=== PATIENT | male | born 1950 | race Caucasian/White ===

== ENCOUNTER 2020-06-11 00:32 | Emergency (ER) | payer MEDICARE, MEDICAID ==
[~2020-06-11] VITALS: Ht 170.2 cm; Wt 81.7 kg
--- NOTE | ~2020-06-11 | EMS ---
[address] [address] EMS Patient Care Report Name: LLOYD WILSON [id number] Admission: 06/11/20 Attend Phys: Discharge: 06/11/20 Date of : 50 Report #: [id number] THIS REPORT FOR: //name// Report Transmitted: 06/12/2020 07:49 EMS Care Summary [place] Incident [id number] @ 06/11/2020 00:00 Incident Location [id number] [place] [address] Patient lloyd wilson Male, 69 Years 1950 Patient Address [id number] [place], [place] [id number] Patient History Alcohol dependence, uncomplicated,Alcohol related disorders, Patient Allergies No known allergies, Chief Complaint Alcohol related symptoms Disposition Transported No Lights/[place] Dispatch Reason Sick Person Transported To [facility] Narrative [facility] DISPATCHED TO A PT WHO DRANK ETOH ON ARRIVAL PT WAS FOUND WALKING TOWARDS AMBULANCE. PT DID NOT HAVE ANY ISSUES WITH GAIT. PT YELLED AT CREW THAT HE WANTED TO BE SEEN FOR ETOH ABUSE. PT WALKED TO BACK OF ambulance WITH OUT ASSISTANCE MADE HIS WAY TO HE COT WHERE HE SAT DOWN. PT WAS SECURED WITH SEAT BELTS. PT VITALS WHERE OBTAINED. THROUGH OUT TRANSPORT PT WAS LOAD AND RUDE. PT VITALS WHERE MONITORED. AT DESTINATION A FULL REPORT WAS GIVEN TO STAFF ONCE [address] [place] [address] EMS Patient Care Report Name: LLOYD WILSON Room: [facility]#: [id number] Admission: 06/11/20 Attend Phys: Discharge: 06/11/20 Date of : 50 Report #: [id number] ALL QUESTIONS WHERE ANSWERED PT WAS unsecured FROM COT AND WALKED TO BED. [facility] CLEAR. Initial Vitals @00:16SpO2: 94, @00:27SpO2: 95, @00:16P: 88,R: 18,BP: 153/90, @00:27P: 86,R: 18,BP: 131/77, @00:16GCS: 15, @00:27GCS: 15, Assessments @00:14MENTAL:SKIN:HEENT:LUNG SOUNDS:ABDOMEN:PELVIS//GI:EXTREMITIES:PULSE:NEURO: Impression Alcohol use Timeline 00:00,Call Received 00:00,Dispatch Notified 00:00,Psap Call 00:00,Dispatched 00:01,En Route 00:12,On Scene 00:14,At Patient 00:16,BP: / M,PULSE: ,RR: R,SPO2: 94 Ox,ETCO2: ,BG: ,PAIN: ,GCS: , 00:16,BP: 153/90 M,PULSE: 88,RR: 18 R,SPO2: Ox,ETCO2: ,BG: ,PAIN: ,GCS: , 00:16,BP: / M,PULSE: ,RR: R,SPO2: Ox,ETCO2: ,BG: ,PAIN: ,GCS: 15, 00:16,Depart Scene 00:27,BP: / M,PULSE: ,RR: R,SPO2: 95 Ox,ETCO2: ,BG: ,PAIN: ,GCS: , 00:27,BP: 131/77 M,PULSE: 86,RR: 18 R,SPO2: Ox,ETCO2: ,BG: ,PAIN: ,GCS: , 00:27,BP: / M,PULSE: ,RR: R,SPO2: Ox,ETCO2: ,BG: ,PAIN: ,GCS: 15, 00:29,At Destination 00:35,Call Closed Disclaimer v1.1 Copyright 2020 [employer] This EMS Care Summary contains data elements from the applicable legal record (which may be displayed differently). It is designed to provide pertinent information for the following purposes: continuity of care, clinical quality, and state data reporting. The complete legal record is available to ED staff and administrators of the receiving hospital in [employer] Patient Tracker. All data is provided "as is."
[~2020-06-11 00:32] MED LIST: ATIVAN1 MG PO; NEURONTIN 300M300 M2 PO; SEROQUEL 50 MG50 MG PO
[2020-06-11 01:11] LABS: HEMATOCRIT 42.8 % (42.0-52.0); HEMOGLOBIN 14.2 gm/dL (14.0-18.0); MCH 30.3 pg (26.0-34.0); MCHC 33.2 g/dL (28.0-37.0); MCV 91.2 fL (80.0-100.0); MPV 7.4 fl. (7.2-11.1); RBC 4.69 mil/uL (4.50-6.00); WBC 6.1 thou/uL (4.0-11.0)
[2020-06-11 01:18] LABS: CALCIUM 8.5 mg/dL (8.5-10.1); CREATININE 0.9 mg/dL (0.6-1.3); POTASSIUM 3.3 mmol/L (3.5-5.1)
[2020-06-11 01:23] LABS: ALBUMIN 3.3 g/dL (3.4-5.0); TOTAL BILIRUBIN 0.3 mg/dL (<0.1-1.0); TOTAL PROTEIN 7.1 g/dL (6.4-8.2)
[2020-06-11 01:37] LABS: ALCOHOL 218 mg/dL (<10); SALICYLATE < 2.8 mg/dL (2.8-20.0)
[2020-06-11 01:43] LABS: ACETAMINOPHEN < 2 ug/mL (10-30)
[2020-06-11 05:32] LABS: URINE BILIRUBIN NEGATIVE (Negative); URINE BLOOD NEGATIVE (Negative); URINE CLARITY CLEAR; URINE COLOR YELLOW; URINE GLUCOSE-RANDOM NEGATIVE (Negative); URINE KETONES NEGATIVE (Negative); URINE LEUKOCYTES NEGATIVE (Negative); URINE NITRITE NEGATIVE (Negative); URINE PROTEIN NEGATIVE (Negative); URINE UROBILINOGEN 0.2 E.U./dl (0.2-1.0)
[2020-06-11 05:40] LABS: AMP/METHAMP Negative (Negative); BARBITURATES Negative (Negative); BENZODIAZEPINES POSITIVE (Negative); COCAINE Negative (Negative); METHADONE Negative (Negative); OPIATES Negative (Negative); PCP Negative (Negative); THC Negative (Negative)
[2020-06-11 08:10] VITALS: BP 135/72
== END 2020-06-11 08:15 | disposition home or self-care (01) ==
LOC: M.ERS 00:32
PROVIDERS: Personal Emergency Response Attendant
DX: F10.129 Alcohol abuse with intoxication, unspecified (principal); Y90.7 Blood alcohol level of 200-239 mg/100 ml; Z20.822 Contact with and (suspected) exposure to COVID-19; J44.9 Chronic obstructive pulmonary disease, unspecified

== ENCOUNTER 2020-10-18 15:02 | Inpatient (IN) | payer OTHER, MEDICAID ==
[~2020-10-18] VITALS: Ht 172.7 cm; Wt 86.0 kg
[2020-10-18 15:06] VITALS: BP 140/79
[2020-10-18] MEDS ORDERED: DEPAKOTE ER500 M1 PO (15:33)
[2020-10-18] MEDS ORDERED: DESYREL150 MG PO (15:33)
[2020-10-18] MEDS ORDERED: PREGABALIN50 MG PO (15:33)
[2020-10-18] MEDS ORDERED: REMERON15 M2 PO (15:34)
[2020-10-18] MEDS ORDERED: SINGULAIR 10 MG10 MG PO (15:34)
[2020-10-18] MEDS ORDERED: PROTONIX40 M2 PO (15:34)
[2020-10-18] MEDS ORDERED: SERTRALINE HCL100 MG PO (15:35)
[2020-10-18] MEDS ORDERED: FOLIC ACID1 MG PO (15:35)
[2020-10-18] MEDS ORDERED: OLANZAPINE ODT5 MG PO (15:35)
[2020-10-18] MEDS ORDERED: BACLOFEN 10MG T10 MG PO (15:35)
[2020-10-18] MEDS ORDERED: MINIPRESS2 MG PO (15:36)
[2020-10-18] MEDS ORDERED: ATORVASTATIN CA80 MG PO (15:36)
[2020-10-18 15:52] LABS: HEMATOCRIT 41.6 % (42.0-52.0); HEMOGLOBIN 14.2 gm/dL (14.0-18.0); MCH 31.3 pg (26.0-34.0); MCHC 34.1 g/dL (28.0-37.0); MCV 91.7 fL (80.0-100.0); MPV 6.9 fl. (7.2-11.1); RBC 4.53 mil/uL (4.50-6.00); RDW-CV 14.5 % (10.5-14.5); WBC 10.2 thou/uL (4.0-11.0)
[2020-10-18 16:01] LABS: POTASSIUM 2.9 mmol/L (3.5-5.1)
[2020-10-18 16:13] LABS: ACETAMINOPHEN < 2 ug/mL (10-30); SALICYLATE < 2.8 mg/dL (2.8-20.0)
[2020-10-18 17:18] LABS: URINE BILIRUBIN NEGATIVE (Negative); URINE BLOOD TRACE (Negative); URINE CLARITY CLEAR; URINE COLOR YELLOW; URINE GLUCOSE-RANDOM NEGATIVE (Negative); URINE KETONES NEGATIVE (Negative); URINE LEUKOCYTES NEGATIVE (Negative); URINE NITRITE NEGATIVE (Negative); URINE PROTEIN NEGATIVE (Negative); URINE SPECIFIC GRAVITY <= 1.005 (1.005-1.030); URINE UROBILINOGEN 0.2 E.U./dl (0.2-1.0)
[2020-10-18 17:26] LABS: AMP/METHAMP Negative (Negative); BARBITURATES Negative (Negative); BENZODIAZEPINES POSITIVE (Negative); COCAINE Negative (Negative); METHADONE Negative (Negative); OPIATES Negative (Negative); PCP Negative (Negative); THC Negative (Negative)
[2020-10-19] VITALS (12 sets, daily range): BP systolic 128–153; BP diastolic 44–81
[2020-10-19 06:16] LABS: INR 1.1; PROTIME 11.4 Seconds (9.20-11.50)
[2020-10-19 06:17] LABS: MAGNESIUM 1.9 mg/dL (1.8-2.4); PHOSPHORUS* 2.8 mg/dL (2.5-4.9)
--- NOTE | 2020-10-19 08:00 | NUR ---
ADMITTED FROM ER. STATES HIS FRIEND FRANKIE COLLADO IS THE PERSON TO CONTACT. SHE MET HIM IN THE LAST MONTH DURING THEIR STAY AT [facility]. SHE IS HIS TRANSPORTATION, SUPPORT AND HE SOMETIMES CALLS HER HIS "" SHE CLEARLY STATES PATIENT HAS A CHANDRAKANT AT HOME. WE DON'T HAVE HER #, HE DOESN'T KNOW IT, AND FRANKIE DOESN'T EITHER. CHANDRAKANT ALSO ALCOHOLIC. PATIENT HAS A PLAN TO GO TO RESIDENTIAL TREATMENT ON THURSDAY. PATIENT INITIALLY STATES HE WANTS TO SLIT HIS WRISTS TO KILL HIMSELF, BUT THEN STATES HE HAS A REASON TO LIVE AND DOESN'T PLAN TO KILL HIMSELF.
[2020-10-19] MEDS ORDERED: PROAIR HFA8.5 GM INH (08:08)
[2020-10-19] MEDS ORDERED: ALBUTEROL (08:09)
[2020-10-19] MEDS ORDERED: DEPAKOTE 250MG250 M1 PO (11:39)
--- NOTE | 2020-10-19 13:39 | NUR ---
armando spk w/ pt who inidicated he lives at home with his in an apt, but pt couldnt recall his number. pt has a walker. pt had inpatient pysch hx at [facility]. pt wanted to rtrn to inpt psych as he has stated he has ruminating negative, self harming thoughts. pt stated he stop taking his bi-polar medication "about 5 days ago" bc he wanted to drink. pt drink of choice is whiskey shots. non-compliance with meds and drinkig enhancing SI. the POC is for a pysch eval.
--- NOTE | 2020-10-19 15:17 | EKG ---
[place] [address] ELECTROCARDIOGRAM REPORT Name: JUAN PABLO GRIFFINLORENZO Chuckie Room: [address] ADM IN M.R.#: [id number] Admission: 10/19/20 Attend Phys: Jagjit Kyle, Discharge: Date of : 50 Date of Service: 10/19/20 0704 Report #: [id number] THIS REPORT FOR: //name// [facility] ED Test Date: 2020-10-19 Test Time: 07:04:13 Pat Name: NITISH GRIFFIN Department: Room: [facility] Gender: M Clinical Outcomes Manager: DION : 1950 Requested By: Lela Barney Order Number: [id number] MD: Harjit Quintero Measurements Intervals [place] Rate: 74 P: 72 GA: 154 QRS: -42 QRSD: 128 T: 29 QT: 425 QTc: 472 Interpretive Statements Sinus rhythm RBBB and LAFB Compared to ECG 12/29/2016 13:09:45 Left anterior fascicular block persists Right bundle-branch block now present Electronically Signed On 10-19-2020 15:17:05 CDT by Harjit Quintero [email or web address] <ELECTRONICALLY SIGNED> By: Harjit Quintero MD, [facility] 10/19/20 1517 0704 Harjit Quintero MD, [facility] /EPI
--- NOTE | 2020-10-19 18:09 | NUR ---
UPDATED JULIANE RN ON PATIENT TRANSPORTED TO TELE VIA WHEELCHAIR. TELEPSYCH dr to CALL DR. AHN. DR AHN PAGED TO ASK ABOUT ORDERS BASED ON RECOMMENDATIONS
[2020-10-20] VITALS (7 sets, daily range): BP systolic 104–157; BP diastolic 40–89
[2020-10-20 09:43] LABS: CALCIUM 7.3 mg/dL (8.5-10.1); CREATININE 1.2 mg/dL (0.6-1.3); POTASSIUM 3.5 mmol/L (3.5-5.1)
--- NOTE | 2020-10-20 20:13 | NUR ---
Pt remained A&Ox3 for entire shift. Pt pleasant with staff, vital signs stable. Pt is impulsive and will climb out of bed to go to the bathroom. Fall precautions in place. Seizure precautions in place. Pt's friend at bedside for most of the day. When asked about rehab, pt states, "hell yeah I am going to rehab!" Regular CIWA assessments completed, hourly rounding completed.
--- NOTE | 2020-10-21 04:43 | NUR ---
ASSUMED PT CARE AT APPROX 1930. PT IS AWAKE, ORIENTED TO SELF AND PLACE, PT IS IMPULSIVE AND IRRITABLE AT TIMES. ALCOHOL WITHDRAWAL ASSESSMENT CHARTED, ATIVAN GIVEN PER MAY. PT IS TRACING SR/ST WITH BBB ON THE HUMIDIFIER OPERATOR. PT IS CLOSELY MONITORED. HIGH FALL PRECAUTIONS AND SEIZURE PRECAUTIONS IN PLACE. CALL LIGHT WITHIN REACH.
[2020-10-21 07:57] LABS: CALCIUM 7.5 mg/dL (8.5-10.1); CREATININE 0.9 mg/dL (0.6-1.3); MAGNESIUM 1.8 mg/dL (1.8-2.4); PHOSPHORUS* 3.4 mg/dL (2.5-4.9); POTASSIUM 3.7 mmol/L (3.5-5.1)
[2020-10-21 09:05] VITALS: BP 155/85
[2020-10-21 12:18] VITALS: BP 149/54
[2020-10-21 16:00] VITALS: BP 166/94
[2020-10-21 20:00] VITALS: BP 167/70
[2020-10-21 23:16] VITALS: BP 148/66
[2020-10-21 23:30] VITALS: BP 144/77
[2020-10-22] VITALS (24 sets, daily range): BP systolic 108–176; BP diastolic 63–88
--- NOTE | 2020-10-22 00:46 | NUR ---
CIWA SCORES HAVE BEEN MORE THAN 20 MULTIPLE TIMES THIS SHIFT, PT IS TRANSFERED TO ICU FOR CLOSE MONITORING AT APPROX 2310 AFTER REPORT GIVEN TO KATIE DEY.
--- NOTE | 2020-10-22 04:25 | NUR ---
RECIEVED PT FROM TELE WITH CIWA OF 23 AND TRYING TO GET OUT OF THE BED, ATIVAN GIVEN REORIENT PT. PRECEDEX STARTED AND PT WAS ASLEEP AND NO EPISODE OF AGITATION. NO DISTRESS AND NO SIEZURE NOTED. CONTINUE MONITORING AND TOWARDS GOALS.
--- NOTE | 2020-10-22 06:38 | NUR ---
PT WOKE UP. HE WAS ANXIOUS AND HAD SOA. PRECEDEX INCREASED AND BREATHING TX GIVEN.
[2020-10-22 10:30] LABS: ABSOLUTE BASOPHILS 0.1 thou/uL (0.0-0.2); ABSOLUTE EOSINOPHILS 0.4 thou/uL (0.0-0.7); ABSOLUTE LYMPHOCYTES 1.3 thou/uL (0.8-5.3); ABSOLUTE MONOCYTES 0.5 thou/uL (0.0-1.2); ABSOLUTE NEUTROPHILS 4.4 thou/uL (1.6-8.1); BASOPHILS 1.2 %; EOSINOPHILS 6.3 %; HEMATOCRIT 39.9 % (42.0-52.0); HEMOGLOBIN 13.6 gm/dL (14.0-18.0); LYMPHOCYTES 19.3 %; MCH 31.3 pg (26.0-34.0); MCHC 34.1 g/dL (28.0-37.0); MCV 91.6 fL (80.0-100.0); MPV 7.4 fl. (7.2-11.1); NUCLEATED RBCS 0 /100WBC; PLATELET COUNT* 154 thou/uL (150-400); POLYS 66.2 %; RBC 4.35 mil/uL (4.50-6.00); RDW-CV 15.2 % (10.5-14.5); WBC 6.6 thou/uL (4.0-11.0)
[2020-10-22 10:42] LABS: ALBUMIN 2.9 g/dL (3.4-5.0); CALCIUM 7.9 mg/dL (8.5-10.1); CREATININE 0.9 mg/dL (0.6-1.3); POTASSIUM 3.5 mmol/L (3.5-5.1); TOTAL BILIRUBIN 0.5 mg/dL (<0.1-1.0); TOTAL PROTEIN 6.7 g/dL (6.4-8.2)
--- NOTE | 2020-10-22 15:03 | NUR ---
barriers to dc: CIWA greater than 20. precedex gtt. the plan will be for pt to d/c [facility] when medically stable.
[2020-10-23] VITALS (10 sets, daily range): BP systolic 122–156; BP diastolic 60–129
[2020-10-23 03:22] LABS: HEMATOCRIT 36.7 % (42.0-52.0); HEMOGLOBIN 12.5 gm/dL (14.0-18.0); MCH 31.2 pg (26.0-34.0); MCHC 33.9 g/dL (28.0-37.0); MPV 7.6 fl. (7.2-11.1); RBC 3.99 mil/uL (4.50-6.00); RDW-CV 15.1 % (10.5-14.5); WBC 5.9 thou/uL (4.0-11.0)
[2020-10-23 03:39] LABS: ALBUMIN 2.5 g/dL (3.4-5.0); CALCIUM 7.8 mg/dL (8.5-10.1); CREATININE 0.9 mg/dL (0.6-1.3); MAGNESIUM 1.7 mg/dL (1.8-2.4); POTASSIUM 3.1 mmol/L (3.5-5.1); TOTAL BILIRUBIN 0.6 mg/dL (<0.1-1.0); TOTAL PROTEIN 5.9 g/dL (6.4-8.2)
--- NOTE | 2020-10-23 04:06 | NUR ---
ASSUMED CARE AT 1900H, ON RA AND TOLERATED. ON PRECEDEX DRIP AND STOP AT 2030H DUE TO BRADYCARDIA. PT WAS ORIENTED AND CIWA 0F 5. NO FEVER BUT STILL WITH WHEEZES. PT ATE WELL HIS SNACK BOX. PT ASKED IF HE CAN GO HOME TODAY. CONTINUE MONITORING AND TOWARDS AND GOALS.
--- NOTE | 2020-10-23 15:11 | NUR ---
per dr mccord's progress note, inpt pysch tx not needed at this. etoh tx recommended; however, pt indicated he wants to d/c from [facility] to home and he will work with his case management assistant at [facility] to get residential tx re-arranged. pt nor his , errol ([phone]) no the name of the residential tx facility, or the name of his cm. pt indicated his friend, elizabeth can provide transportation to home at d/c.
--- NOTE | 2020-10-23 18:31 | NUR ---
PT IS BEING TRANSFERED TO ROOM 201 ALL BELONGINGS PACKED AND SENT WITH PT VIA WHEELCHAIR BY NURSING STAFF
[2020-10-24 00:29] VITALS: BP 147/78
[2020-10-24 04:51] LABS: HEMATOCRIT 34.8 % (42.0-52.0); HEMOGLOBIN 11.8 gm/dL (14.0-18.0); MCH 31.2 pg (26.0-34.0); MCV 91.7 fL (80.0-100.0); MPV 7.8 fl. (7.2-11.1); RBC 3.8 mil/uL (4.50-6.00); RDW-CV 15.8 % (10.5-14.5); WBC 5.1 thou/uL (4.0-11.0)
[2020-10-24 05:11] LABS: ALBUMIN 2.7 g/dL (3.4-5.0); CALCIUM 8.3 mg/dL (8.5-10.1); CREATININE 1.1 mg/dL (0.6-1.3); MAGNESIUM 1.8 mg/dL (1.8-2.4); POTASSIUM 4.2 mmol/L (3.5-5.1); TOTAL BILIRUBIN 0.4 mg/dL (<0.1-1.0); TOTAL PROTEIN 6.4 g/dL (6.4-8.2)
[2020-10-24 05:51] VITALS: BP 142/82
[2020-10-24 12:18] VITALS: BP 165/88
--- NOTE | 2020-10-24 13:44 | NUR ---
Anticipate dc in a few days. Therapies to eval. CIWAs going up.
[2020-10-24 16:35] VITALS: BP 173/90
[2020-10-24 18:58] VITALS: BP 141/74
--- NOTE | 2020-10-24 19:24 | NUR ---
PT RESTLESS, CONFUSED, ORIENTED TO SELF ONLY. PT DENIES HAVING C/O PAIN UPON ASSESMENT. HE HAS MADE SEVERAL ATTEMPTS TO CLIMB OUT OF BED BECAUSE HE SAYS HE HAS TO GOT TO THE BANK BUT HAS BEEN EASILY REDIRECTED.
[2020-10-24 19:30] VITALS: BP 137/75
[2020-10-25 00:20] VITALS: BP 131/78
[2020-10-25 04:03] VITALS: BP 140/62
--- NOTE | 2020-10-25 05:20 | NUR ---
ASSUMED PATIENT CARE AT 1900. ASSESSMENT COMPLETED CHARTED. CARDIAC MONITORING IN PLACE. HOURLY ROUNDING IN PLACE FOR PATIENT SAFETY. FALL PRECAUTIONS IN PLACE FOR PATIENT SAFETY. BED LOCKED AND IN LOWEST POSITION. CLWR.
[2020-10-25 08:25] VITALS: BP 146/79
[2020-10-25 12:00] VITALS: BP 155/79
[2020-10-25] MEDS ORDERED: PREDNISONE 10 M10 MG PO (13:38)
[2020-10-25 16:00] VITALS: BP 152/78
[2020-10-25 20:00] VITALS: BP 141/84
[2020-10-26] VITALS: BP 150/70
[2020-10-26 04:00] VITALS: BP 117/58
[2020-10-26 08:00] VITALS: BP 143/69
[2020-10-26 11:44] VITALS: BP 141/62
--- NOTE | 2020-10-26 13:56 | NUR ---
No weekend dc planned. Pt had sitter over night. Ciwa is 16, continues to withdraw
[2020-10-26 16:00] VITALS: BP 146/80
--- NOTE | 2020-10-26 17:00 | NUR ---
TOOK OVER PT CARE FROM TIBURCIO WOOD AT APPROX 1500, PT AOX4, NO C/O PAIN, IV MEDS FINISHING UP AND DR PEACOCK NOTIFIED THAT PT IS READY FOR DC, DC ORDERS RECEIVED. IV AND GRADING MACHINE FEEDER REMOVED. PT DC'D BY WC W/ NURSING STAFF AND ALL PAPERWORK AND PERSONAL BELONGINGS TO SON'S VEHICLE AT APPROX 1705
[2020-10-26 20:00] VITALS: BP 142/72
[2020-10-27 00:13] VITALS: BP 140/79
[2020-10-27 03:57] VITALS: BP 137/82
[2020-10-27 05:20] LABS: HEMATOCRIT 40.8 % (42.0-52.0); HEMOGLOBIN 13.3 gm/dL (14.0-18.0); MCH 30.4 pg (26.0-34.0); MCHC 32.5 g/dL (28.0-37.0); MCV 93.4 fL (80.0-100.0); MPV 8.4 fl. (7.2-11.1); RBC 4.37 mil/uL (4.50-6.00); RDW-CV 15.8 % (10.5-14.5); WBC 7.3 thou/uL (4.0-11.0)
[2020-10-27 05:42] LABS: CALCIUM 8.3 mg/dL (8.5-10.1); CREATININE 0.9 mg/dL (0.6-1.3); POTASSIUM 4.2 mmol/L (3.5-5.1)
[2020-10-27 12:00] VITALS: BP 142/59
[2020-10-27 16:00] VITALS: BP 129/66
[2020-10-27 20:00] VITALS: BP 119/57
[2020-10-28 00:35] VITALS: BP 168/77
[2020-10-28 05:28] LABS: HEMATOCRIT 41.2 % (42.0-52.0); HEMOGLOBIN 13.9 gm/dL (14.0-18.0); MCH 31.2 pg (26.0-34.0); MCHC 33.8 g/dL (28.0-37.0); MCV 92.3 fL (80.0-100.0); MPV 8.4 fl. (7.2-11.1); NUCLEATED RBCS 0 /100WBC; PLATELET COUNT* 187 thou/uL (150-400); RBC 4.46 mil/uL (4.50-6.00); RDW-CV 15.6 % (10.5-14.5); WBC 8.6 thou/uL (4.0-11.0)
[2020-10-28 05:36] LABS: CALCIUM 8.5 mg/dL (8.5-10.1); TOTAL BILIRUBIN 0.5 mg/dL (<0.1-1.0); TOTAL PROTEIN 6.8 g/dL (6.4-8.2)
[2020-10-28 08:02] LABS: ABSOLUTE LYMPHOCYTES 0.3 thou/uL (0.8-5.3); ABSOLUTE MONOCYTES 0.3 thou/uL (0.0-1.2); ANISOCYTOSIS 1+; PLATELET ESTIMATE ADEQUATE; POIKILOCYTOSIS 1+
[2020-10-28 08:50] VITALS: BP 116/65
[2020-10-28 12:00] VITALS: BP 116/57
[2020-10-28 16:00] VITALS: BP 147/90
[2020-10-28 20:00] VITALS: BP 128/69
--- NOTE | 2020-10-28 20:00 | NUR ---
RECEIVED REPORT AND ASSUMED CARE OF PT, ASSESSMENT COMPLETED. PT VERY CONFUSED AND IMPULSIVE. ATTEMPTING MULTIPLE TIMES TO GET OUT OF BED TO GO HOME. ASSISTED TO BSC FOR LG BM. IV ATIVAN GIVEN. TELEMETRY ON SHOWING SR. WILL CONT TO MONITOR AND ASSIST NEEDED.
[2020-10-29] VITALS (7 sets, daily range): BP systolic 104–134; BP diastolic 53–78
--- NOTE | 2020-10-29 06:47 | NUR ---
AWAKE ALL NIGHT AND RESTLESS. CONSTANTLY WANTING TO GO HOME, ATTEMPTED TO REORIENTATE. TOOK MEDS IN APPLESAUCE WITH NECTAR THICK LIQ, NO COUGHING OR CHOKING. SEIZURE PRECAUTIONS IN PLACE AND SIDE RAILS PADDED. IV RESTARTED WITH DIFFICULTY INTO LT HAND. TELEMETRY CONT TO SHOW SR. NO CHANGES IN ASSESSMENT. HS GOAL OF SAFETY ACHIEVED. HOURLY ROUNDING OBSERVED.
--- NOTE | 2020-10-29 12:34 | NUR ---
ASSUMED CARE OF PT AT 0730. PT A&0X4, FORGETFUL AND CONFUSED AT TIMES, SLURRED SPEECH NOTED AT TIMES WELL. SEIZURE PRECAUTIONS IN PLACE. TRACING SR ON THE HEALTH CARE ADMINISTRATOR. ON RA SAT MID 90'S. DENIES ANY PAIN OR SHORTNESS OF BREATH. PT INCONT OF BOWEL AND BLADDER. CIWA CHARTED.-16-18, PT AGITATED, CONFUSED, IMPULSIVE AND TREMORS NOTED. PRN ATIVAN GIVEN PER EMAR. FAMILY FRIEND REMAINS AT BEDSIDE AT THIS TIME. PT UP WITH 2 ASSIST-WEAKNESS NOTED. PT ASKING FOR TOBACCO CHEW- DR PEACOCK NOTIFIED AND ORDERS RECEIVED FOR NICOTINE PATCH-REFER TO EMAR. AM ASSESSMENT CHARTED. MEDICATIONS PER MAY. PT REPOSITIONS SELF. HOURLY ROUNDING OBSERVED. BED IN LOW POSITION. BED ALARM IN PLACE. FALL PRECAUTIONS IN PLACE. CALL LIGHT WITHIN REACH. WILL CONTINUE PLAN OF CARE.
--- NOTE | 2020-10-29 15:01 | NUR ---
Pt continues to withdraw, ciwa ranging from 12-18. ?placement at dc vs home with friend. Per , does not want Pt to return home. Pt will need to be more clear prior to dc, Pt would need to be able to agree to placement/sign himself into a facility. CM to discuss dc with Pt's friend. Following.
--- NOTE | 2020-10-29 20:00 | NUR ---
RECEIVED REPORT AND ASSUMED CARE OF PT, ASSESSMENT COMPLETED. PT CALMER THIS EVENING AND MORE COOPERATIVE. PT NAUSEATED WITH EMESIS, STATES HE FEELS BETTER AFTER THROWING UP. TELEMETRY ON SHOWING SR WITH BBB. WILL CONT TO MONITOR AND ASSIST NEEDED.
[2020-10-30 04:07] VITALS: BP 131/71
--- NOTE | 2020-10-30 06:45 | NUR ---
SLEPT WELL TONIGHT. ASSISTED TO BSC X1, UNSTEADY BUT DID WELL. TOLERATED PO MEDS IN APPLESAUCE AND NECTAR THICK LIQUIDS. NO CHANGE IN ASSESSMENT. HS GOALS OF REST AND SAFETY ACHIEVED.
[2020-10-30 07:45] VITALS: BP 119/57
[2020-10-30 12:00] VITALS: BP 133/66
--- NOTE | 2020-10-30 12:58 | NUR ---
Pt continues to withdraw, ciwa around 18. CM left VM for , await call back.
[2020-10-30 16:00] VITALS: BP 145/75
--- NOTE | 2020-10-30 18:04 | NUR ---
NO ACUTE CHANGES THROUGHOUT SHIFT. PT IMPULSIVE, CONFUSED, REQUESTING CHEW AND LIQUOR. CIWA CHARTED. PRN PO ATIVAN GIVEN PER EMAR. PT FRIEND, FRANKIE, HERE THROUGHOUT SHIFT. PT , VANESSA-CALLED MULTIPLE TIMES THROUGHOUT SHIFT-UPDATED ON CURRENT PLAN OF CARE EACH TIME. PT DENIES ANY PAIN OR SHORTNESS OF BREATH. TRACING SR ON THE ASSISTANT DIRECTOR OF FINANCIAL AID. INCONT OF BLADDER THROUGHOUT SHIFT. AM ASSESSMENT CHARTED. MEDS PER MAR. CALL LIGHT WITHIN REACH. FALL PRECAUTIONS IN PLACE. BED ALARM IN PLACE. WILL CONTINUE PLAN OF CARE.
[2020-10-30 20:51] VITALS: BP 127/60
[2020-10-31] VITALS (7 sets, daily range): BP systolic 115–144; BP diastolic 59–77
--- NOTE | 2020-10-31 03:15 | NUR ---
Patient continues to withdraw from alcohol. patient tried to climb out of bed most ofthe time tonight. Ativan admistered a few times. Had several episodes of incontinence. Patient safety maintained with bed height on low position, bed armed and seizure pads intact. Will continue to care.
[2020-10-31 08:57] LABS: HEMATOCRIT 40.7 % (42.0-52.0); HEMOGLOBIN 13.7 gm/dL (14.0-18.0); MCH 30.9 pg (26.0-34.0); MCHC 33.6 g/dL (28.0-37.0); MCV 92.1 fL (80.0-100.0); RBC 4.42 mil/uL (4.50-6.00); RDW-CV 15.8 % (10.5-14.5); WBC 10.7 thou/uL (4.0-11.0)
[2020-10-31 09:20] LABS: ALBUMIN 2.8 g/dL (3.4-5.0); CALCIUM 8.2 mg/dL (8.5-10.1); POTASSIUM 3.6 mmol/L (3.5-5.1); TOTAL BILIRUBIN 0.4 mg/dL (<0.1-1.0)
--- NOTE | 2020-10-31 12:34 | NUR ---
Ciwas still up. CM attempted to locate 's phone number to discuss POC. CM asked U/S to get 's number the next time she calls.
--- NOTE | 2020-10-31 18:05 | NUR ---
KIN CHARTED. PRN PO ATIVAN GIVEN PER EMAR. PT IMPULSIVE AND CONFUSED. INCONT OF BOWEL AND BLADDER. BED ALARM IN PLACE. FALL PRECAUTIONS IN PLACE. CALL LIGHT WITHIN REACH. WILL CONTINUE PLAN OF CARE.
[2020-11-01 04:17] VITALS: BP 111/55
[2020-11-01 04:26] LABS: HEMATOCRIT 41.9 % (42.0-52.0); HEMOGLOBIN 13.6 gm/dL (14.0-18.0); MCH 30.1 pg (26.0-34.0); MCHC 32.6 g/dL (28.0-37.0); MCV 92.3 fL (80.0-100.0); MPV 8.2 fl. (7.2-11.1); RBC 4.54 mil/uL (4.50-6.00); RDW-CV 15.8 % (10.5-14.5); WBC 10.4 thou/uL (4.0-11.0)
[2020-11-01 04:39] LABS: CALCIUM 8.2 mg/dL (8.5-10.1); CREATININE 0.9 mg/dL (0.6-1.3); MAGNESIUM 2.2 mg/dL (1.8-2.4); POTASSIUM 4.1 mmol/L (3.5-5.1)
[2020-11-01 07:55] VITALS: BP 144/71
[2020-11-01 12:00] VITALS: BP 136/72
--- NOTE | 2020-11-01 13:04 | NUR ---
Anticipate dc either later today or tomorrow pending PT
[2020-11-01 16:00] VITALS: BP 131/59
--- NOTE | 2020-11-01 17:03 | NUR ---
PATIENT RESTING UP IN CHAIR. PATIENT IS UP WITH MINIMUM ASSIST WITH GAIT BELT AND WALKER. PATIENT DOES SHUFFLE FEET. PATIENT IS IMPULSIVE, BED AND CHAIR ALARMS USED. PATIENT HAS BEEN COOPERATIVE. ATIVAN GIVEN PRN. PATIENT HAS GOOD APPETITE, NECTAR THICK LIQUIDS PUREED DIET. PATIENT DENIES ANY NEEDS AT THIS TIME. CALL LIGHT WITHIN REACH.
[2020-11-01 20:04] VITALS: BP 110/61
[2020-11-02] VITALS: BP 120/54
--- NOTE | 2020-11-02 01:43 | NUR ---
Patient slep most of the nigh. Alert but slurred. Call light wihin reach. Bed alarm on.
[2020-11-02 04:00] VITALS: BP 118/50
[2020-11-02 10:27] VITALS: BP 118/50
[2020-11-02 11:13] VITALS: BP 118/50
--- NOTE | 2020-11-02 14:10 | NUR ---
PATIENT DISCHARGED TO HOME WITH HOME HEALTH. DISCHARGE PAPERS REVIEWED AND SIGNED. PRESCRIPTION TRANSMITTED TO PHARMACY AND INFORMATION SHEETS GIVEN. IV'S REMOVED. ATTEMPTED TO CALL CHANDRAKANT(PATIENT'S X 2) WITH NO ANSWER. PATIENT'S FRIEND ALTHEA IS TRANSPORTING TO HOME. PATIENT DENIES ANY FURTHER NEEDS. PATIENT TAKEN BY WHEELCHAIR TO EXIT. LEFT WITH FRIEND.
[2020-11-02 14:30] VITALS: BP 118/50
--- NOTE | 2020-11-02 15:12 | NUR ---
THIS PILLAR WORKER IS IN AGREEMENT WITH DOCUMENTATION BY MIAH CAMARGO FOR THIS DAY. EVE YET
== END 2020-11-02 14:00 | disposition home health service (06) | DRG 896 ==
LOC: M.ERS 15:02 → M.ICU 10-19 05:12 → M.2W 10-19 05:12 → M.TBA-ER 10-19 05:12 → M.ICU 10-19 07:50 → M.2W 10-19 18:11 → M.ICU 10-21 22:50 → M.2W 10-23 19:32
PROVIDERS: Emergency Medicine; Internal Medicine; Personal Emergency Response Attendant; ADMIT Internal Medicine; ATTEND Internal Medicine
DX: F10.229 Alcohol dependence with intoxication, unspecified (principal); G92 Toxic encephalopathy; E43 Unspecified severe protein-calorie malnutrition; R45.851 Suicidal ideations; E87.0 Hyperosmolality and hypernatremia; J44.1 Chronic obstructive pulmonary disease with (acute) exacerbation; I69.354 Hemiplegia and hemiparesis following cerebral infarction affecting left non-dominant side; F10.239 Alcohol dependence with withdrawal, unspecified; I10 Essential (primary) hypertension; F32.9 Major depressive disorder, single episode, unspecified; I25.10 Atherosclerotic heart disease of native coronary artery without angina pectoris; E78.5 Hyperlipidemia, unspecified; Z20.822 Contact with and (suspected) exposure to COVID-19; E87.6 Hypokalemia; I25.2 Old myocardial infarction; Z87.891 Personal history of nicotine dependence; Z79.899 Other long term (current) drug therapy; Z68.28 Body mass index [BMI] 28.0-28.9, adult